=== PATIENT | male | born 1970 | race Caucasian/White ===

== ENCOUNTER 2017-03-15 08:52 | Emergency (ER) | payer BC ==
[~2017-03-15] VITALS: Ht 152.4 cm; Wt 95.0 kg
[2017-03-15] MEDS ORDERED: FLEXERIL10 MG PO (11:28)
[2017-03-15] MEDS ORDERED: NAPROSYN500 MG PO (11:28)
[2017-03-15 12:06] VITALS: BP 145/90
== END 2017-03-15 12:07 | disposition home or self-care (01) ==
LOC: EME 08:52
PROC: 0RSJXZZ Reposition Right Shoulder Joint, External Approach (ICD-10-PCS; principal; 2017-03-15)
DX: M24.411 Recurrent dislocation, right shoulder (principal); W10.9XXA Fall (on) (from) unspecified stairs and steps, initial encounter
CPT/HCPCS: 73020; 73030; 99281; 99285; J1885